=== PATIENT | female | born 1965 | race Caucasian/White ===

== ENCOUNTER → 2016-11-25 | Outpatient (CLI) | payer OTHER ==
[~2016-11-25] MED LIST: ALL180 PO; CALC500C70 PO; CYM60 PO; DYZ PO; LO OVRAL BCP PO; OMEG10007 PO; VITA400C15 PO; ZNTT/150 PO
--- NOTE | 2016-11-25 16:45 | MAMMOGRAPHY REPORT ---
BILATERAL DIGITAL SCREENING MAMMOGRAM TOMOSYNTHESIS WITH CAD: 11/25/2016 TECHNIQUE: Breast tomosynthesis in addition to standard 2D mammography was performed. Current study was also evaluated with a Computer Aided Detection (CAD) system. COMPARISON: Comparison is made to exams dated: 11/22/2015 mammogram, 10/30/2014 mammogram, 10/24/2013 mammogram, 10/20/2012 mammogram, 10/17/2011 mammogram, and 10/23/2010 mammogram - [facility] enter. BREAST COMPOSITION: There are scattered areas of fibroglandular density in both breasts. FINDINGS: There is a new small 2 mm cluster of calcifications in the right upper inner quadrant, fo r which spot magnification views are recommended for further evaluation. The remainder of both breasts are stable compared to prior exams, without suspicious masses, calcifi cations, or areas of architectural distortion noted. IMPRESSION: ACR BI-RADS CATEGORY 0: INCOMPLETE EVALUATION: NEED ADDITIONAL IMAGING EVALUATION Right upper inner quadrant calcifications, for which additional imaging evaluation is recommended. The patient will be called to schedule an appointment. Approximately 10% of breast cancers are not detected with mammography. A negative mammographic repor t should not delay biopsy if a clinically suggestive mass is present. Ivette Mcneill M.D. ah/:11/25/2016 16:00:01 Marketing Executive: Cary ROSARIO(Shaun)(M), [facility] letter sent: Addl Imaging 0 BI-RADS Code: ACR BI-RADS Category 0: Incomplete Evaluation: Need Additional Imaging Evaluation
== END | disposition home or self-care (01) ==
LOC: C.MAMM 15:12
PROVIDERS: ATTEND Internal Medicine
DX: Z12.31 Encounter for screening mammogram for malignant neoplasm of breast (principal); R92.1 Mammographic calcification found on diagnostic imaging of breast

== ENCOUNTER → 2016-12-12 | Outpatient (CLI) | payer OTHER ==
--- NOTE | 2016-12-15 13:48 | MAMMOGRAPHY REPORT ---
UNILATERAL RIGHT DIGITAL DIAGNOSTIC MAMMOGRAM: 12/12/2016 CLINICAL HISTORY: Callback from screening mammogram for right breast calcifications. The patient fabian s a family history of breast cancer in her mother. TECHNIQUE: Spot magnification right cc and ML views were obtained. COMPARISON: Comparison is made to exams dated: 11/25/2016 mammogram, 10/30/2014 mammogram, 11/22/2015 mammogram, 10/24/2013 mammogram, 10/20/2012 mammogram, and 10/17/2011 mammogram - [facility] enter. BREAST COMPOSITION: There are scattered areas of fibroglandular density in the right breast. FINDINGS: Spot magnification views of the right breast demonstrate a small 2 mm cluster of coarse h eterogeneous calcifications within the right 12:00 breast. The calcifications are probably benign a nd likely represent a degenerating fibroadenoma or potentially dystrophic calcifications. Recommend follow-up diagnostic mammograms of the right breast in 6 months to confirm stability. IMPRESSION: ACR-BI-RADS CATEGORY 3: PROBABLY BENIGN Small 2 mm cluster of coarse calcifications in the right 12:00 breast is probably benign and may rep resent a degenerating fibroadenoma or dystrophic calcifications. Recommend follow-up diagnostic arnie mograms of the right breast in 6 months to confirm stability on spot magnification views. The patient has been verbally notified of the results. Approximately 10% of breast cancers are not detected with mammography. A negative mammographic repor t should not delay biopsy if a clinically suggestive mass is present. Ivette Mcneill M.D. ah/:12/12/2016 14:30:54 Fur Matcher: New ROSARIO(R)(M), [facility] letter sent: Follow Up Recommended 3 BI-RADS Code: ACR-BI-RADS Category 3: Probably Benign
== END | disposition home or self-care (01) ==
LOC: C.MAMM 14:04
PROVIDERS: ATTEND Internal Medicine
DX: R92.1 Mammographic calcification found on diagnostic imaging of breast (principal)

== ENCOUNTER → 2017-02-21 | Outpatient (CLI) | payer OTHER ==
[2017-02-21 09:30] LABS: BASO % 0.6 %; BASO ABS # 0.05 K/uL (0-0.2); COMPLETE YES; EOS % 2.8 %; HEMATOCRIT 43.1 % (37-47); IG% 0.1 %; LYMPH % 41.1 %; LYMPH ABS # 3.24 K/uL (1.2-3.4); MEAN CELL VOLUME 89.4 fL (80-100); MEAN CORPUSCULAR HEMOGLOBIN 30.3 pg (25-34); MEAN CORPUSCULAR HGB CONC 33.9 g/dl (32-36); MEAN PLATELET VOLUME 12.2 fL (7.4-10.4); MONO % 6.6 %; NEUT % 48.8 %; PLATELET COUNT 248 K/uL (130-400); RED BLOOD COUNT 4.82 M/uL (4.2-5.4); WHITE BLOOD COUNT 7.89 K/uL (4.8-10.8)
[2017-02-21 10:18] LABS: ALT/SGPT 30 U/L (12-78); BLOOD UREA NITROGEN 19 mg/dl (7-18); BUN/CREATININE RATIO 18.8 (10-20); CARBON DIOXIDE 25 mmol/L (21-32); CHLORIDE 107 mmol/L (98-107); GLUCOSE 84 mg/dl (70-99); POTASSIUM 3.8 mmol/L (3.5-5.1); SODIUM 141 mmol/L (136-145)
[2017-02-21 10:24] LABS: CALCIUM 10.1 mg/dl (8.5-10.1)
[2017-02-21 10:28] LABS: AST/SGOT 18 U/L (15-37); CHOLESTEROL 176 mg/dl (0-200); HDL CHOLESTEROL 35 mg/dl; LDL CHOLESTEROL CALCULATED 103 mg/dl; TRIGLYCERIDES 190 mg/dl (0-150); VERY LOW DENSITY LIPOPROT CALC 38 mg/dl
== END | disposition home or self-care (01) ==
LOC: C.LAB 08:30
PROVIDERS: ATTEND Internal Medicine
DX: E03.9 Hypothyroidism, unspecified (principal); I10 Essential (primary) hypertension; E78.2 Mixed hyperlipidemia; R60.9 Edema, unspecified

== ENCOUNTER → 2017-02-26 | Outpatient (CLI) | payer OTHER | END | disposition home or self-care (01) | LOC: C.PAPS 10:08 | PROVIDERS: ATTEND Obstetrics & Gynecology | DX: Z12.4 Encounter for screening for malignant neoplasm of cervix (principal) ==

== ENCOUNTER → 2017-03-02 | Outpatient (CLI) | payer OTHER | END | disposition home or self-care (01) | LOC: C.LAB 16:37 | PROVIDERS: ATTEND Physician Assistant | DX: Z30.09 Encounter for other general counseling and advice on contraception (principal) ==

== ENCOUNTER → 2017-06-16 | Outpatient (CLI) | payer OTHER ==
--- NOTE | 2017-06-16 12:39 | MAMMOGRAPHY REPORT ---
UNILATERAL RIGHT DIGITAL DIAGNOSTIC MAMMOGRAM TOMOSYNTHESIS WITH CAD: 06/16/2017 CLINICAL HISTORY: 52-year-old woman presents for follow-up of a probably benign grouping of coarse ca lcifications in the upper inner quadrant of the right breast. TECHNIQUE: Right breast tomosynthesis in addition to standard 2D mammography was performed. Spot mag nification right CC and ML views were also obtained. Current study was also evaluated with a Compute r Aided Detection (CAD) system. COMPARISON: Comparison is made to exams dated: 12/12/2016 mammogram, 11/25/2016 mammogram, 11/22/2015 ma mmogram, 10/30/2014 mammogram, 10/24/2013 mammogram, and 10/20/2012 mammogram - [facility]. BREAST COMPOSITION: There are scattered areas of fibroglandular density in the right breast. FINDINGS: There is a stable 2 mm cluster of coarse heterogeneous microcalcifications in the upper inn er middle to posterior right breast. These have not changed comparing to the spot magnification view s obtained in December 2016, and probably represent a benign degenerating fibroadenoma. However, given that they were not seen on the 2016 or prior mammograms, longer stability is needed. Repeat right sp ot magnification views are recommended in 6 months. Annual left mammography will also be due at that time. No other suspicious mass, architectural distortion or cluster of microcalcifications is seen in the right breast. IMPRESSION: ACR-BI-RADS CATEGORY 3: PROBABLY BENIGN Stable mammographic appearance of the right breast including a probably benign grouping of coarse manju cifications in the upper inner quadrant. Another six-month follow-up right diagnostic mammogram incl uding spot magnification views is recommended to ensure longer stability. Annual left mammography wi ll be due at that time. Approximately 10% of breast cancers are not detected with mammography. A negative mammographic report should not delay biopsy if a clinically suggestive mass is present. Jaye Hair M.D. ay/:06/16/2017 08:47:11 Unemployment Examiner: Dorothy ROSARIO(R)(M), [facility] letter sent: Follow Up Recommended 3 BI-RADS Code: ACR-BI-RADS Category 3: Probably Benign
== END | disposition home or self-care (01) ==
LOC: C.MAMM 08:16
PROVIDERS: ATTEND Internal Medicine
DX: R92.1 Mammographic calcification found on diagnostic imaging of breast (principal)

== ENCOUNTER → 2017-09-17 | Outpatient (CLI) | payer OTHER ==
--- NOTE | 2017-09-17 17:03 | DIAGNOSTIC IMAGING REPORT ---
R HIP UNILATERAL 2 VIEWS CLINICAL HISTORY: Right hip pain. COMPARISON: None FINDINGS: Alignment of the right hip is anatomic. There is no fracture or osseous lesion. Joint space is preserved. There is slight osteophytosis along the superior acetabulum. There is no evidence for avascular necrosis. IMPRESSION: Unremarkable right hip radiographs. Electronically signed by: Rafi Nichole M.D. 09/17/2017 5:02 PM Dictated Date/Time: 09/17/2017 5:01 PM
--- NOTE | 2017-09-17 17:03 | DIAGNOSTIC IMAGING REPORT ---
L-SPINE MIN 4 VIEWS ROUTINE CLINICAL HISTORY: Back pain. COMPARISON: None. FINDINGS: Incidental note is made of an intrauterine device. Alignment of the lumbar spine is anatomic. Vertebral body heights are maintained. No fracture or suspicious lesion is noted. Note is made of a transitional vertebra at the lumbosacral junction which is designated as L5 for purposes of numbering on this exam. This vertebral body is partially sacralized. When utilizing this numbering scheme, there is marked disc space narrowing at L4-L5 and moderate disc space narrowing at L5-S1. There is moderate to severe multilevel facet arthrosis. IMPRESSION: 1. No acute lumbar spine fracture or subluxation. 2. Transitional vertebra at the lumbosacral junction which is designated as L5 for purposes of numbering on this exam. 3. Marked disc space narrowing at L4-L5 and moderate disc space narrowing at L5-S1. 4. Moderate to severe multilevel facet arthrosis. Electronically signed by: Rafi Nichole M.D. 09/17/2017 5:02 PM Dictated Date/Time: 09/17/2017 4:41 PM
== END | disposition home or self-care (01) ==
LOC: C.RAD1850 16:14
PROVIDERS: ATTEND Internal Medicine
DX: M25.551 Pain in right hip (principal); M99.73 Connective tissue and disc stenosis of intervertebral foramina of lumbar region

== ENCOUNTER → 2017-10-28 | Outpatient (CLI) | payer OTHER ==
--- NOTE | 2017-10-28 14:30 | Discharge Instructions ---
Discharge Instructions Procedure Procedure Date: Oct 28, 2017. Reason for visit: Left Asymmetry. Discharge Discharge Date: Oct 28, 2017. Discharge Diagnosis: post left breast stereotactic guided biopsy Instructions Activity Recommendations: Additional Limitations (see below) Return to School/Work: no limitations Recommended Home Diet: No Limitations Provider Instructions: ACTIVITY RECOMMENDATIONS: * No lifting, pushing, pulling or exercising the affected side for three days. RETURN TO SCHOOL/WORK: * You may return to work/school after the procedure, but do not perform any strenuous activities for 24 to 48 hours. MEDICATIONS: * Tylenol (two 325 mg) every four to six hours if needed for mild pain (if not allergic to Tylenol). DIET: * Resume previous diet. SPECIAL CARE INSTRUCTIONS: * Keep biopsy site dry for 24 hours. May shower after 24 hours, but do not soak (bathe) incision. * May remove Tegaderm (plastic patch) tomorrow AFTER showering. * Leave the steri-strips on for one week. Allow the steri-strips to fall off by themselves. If not off after one week, you may remove them. You may place a Bandaid crosswise over the strips, if desired. * Apply ice 10 minutes on and 10 minutes off as needed. * Wear a bra at bedtime to sleep more comfortably for 2-3 days. * Your referring physician should have the results after approximately 5 to 7 business days. * Call for unusual bleeding, fever, drainage, etc or if you have any questions call [phone] during normal business hours or after hours call Dr Hair, . FOLLOW UP VISIT: Follow-up with Referring Physician as scheduled. Allergies Coded Allergies: Sulfa Drugs (Verified Allergy, Unknown, RASH, 05/21/14) Sanaz Lou Recommendations: Call your doctor if: * Temperature above 101 degrees * Pain not relieved by pain medicine ordered * There is increased drainage or redness from any incision * You have any unanswered questions or concerns. Your Doctors Instructions noted above were prepared by provider Jaye Hair. Patient Signature Section: Patient Instructions Signature Page Chery Clarke Patient (or Guardian) Signature/Date: I have read and understand the instructions given to me by my caregivers. Caregiver/RN/Doctor Signature/Date: The above-named patient and/or guardian has received patient instructions on this date. + Original Patient Signature Page (only) stays with chart. Please make copy for patient.
--- NOTE | 2017-10-28 15:08 | MAMMOGRAPHY REPORT ---
STEREOTACTIC GUIDED BIOPSY LEFT BREAST: 10/28/2017 CLINICAL HISTORY: 52-year-old woman presents for stereotactic tomosynthesis guided biopsy of a focal asymmetry in the approximate 3:00/lower outer posterior left breast. COMPARISON: Comparison is made to exams dated: 10/22/2017 mammogram, 11/25/2016 mammogram, 11/22/2015 m ammogram, 10/30/2014 mammogram, 10/24/2013 mammogram, and 10/20/2012 mammogram - [facility] nter. PATIENT CONSENT: After explaining the risks, benefits and alternatives of the procedure to the patien t, informed consent was obtained both verbally and in writing. Specific risks include: Bleeding, inf ection, puncture of adjacent structure, pain, nontarget biopsy, sampling error, metal allergy and med ication reaction. PROCEDURE DESCRIPTION: A time-out was performed and the left breast was confirmed as the site of biop sy. The patient was placed prone on the stereotactic biopsy table and the breast was placed in CC fro m below compression. A tomosynthesis hairmasters manager view was obtained that redemonstrates the focal asymmetry in question, which is amenable to stereotactic biopsy. The asymmetry with targeted utilizing the senior marketing coordinator rdinates obtained by the computer. The skin was prepped with Betadine. 1% Lidocaine with and without epinipherine was administered as local anesthesia. A small skin incision was made. Through the inci sophia, the needle was inserted to the depth determined by the computer. 10 samples were obtained using a VBOX Eviva 9-gauge vacuum-assisted biopsy device. A post-clip tomosynthesis view was obtained wh ich demonstrates an air pocket within the asymmetry in question, compatible with adequate sampling. There was no immediate complication. Hemostasis was achieved after several minutes of manual compress ion. The samples were sent to pathology in an appropriately labeled container. Postprocedure CC and MLO tomosynthesis images of the left breast were obtained. There is a biopsy ma rker clip and air pocket in the 3:00 posterior left breast, at the site of the biopsied focal asymmet ry in question. No significant postbiopsy hematoma identified. There is good alignment of the marke r clip with the previously observed focal asymmetry. IMPRESSION: STEREOTACTIC GUIDED BIOPSY Status post stereotactic tomosynthesis guided biopsy of a focal asymmetry in the 3:00 posterior left breast, with biopsy marker clip placed at the site. Pending benign pathology results, follow-up diagnostic mammograms including right breast magnificatio n views are recommended in 12 months. The patient will receive notification of the biopsy results from her referring physician. Jaye Hair M.D. ay/:10/28/2017 14:49:41 Supervisor Spinning: New ROSARIO(Shaun)(M), [facility]
--- NOTE | 2017-10-28 15:11 | MAMMOGRAPHY REPORT ---
UNILATERAL LEFT DIGITAL DIAGNOSTIC MAMMOGRAM TOMOSYNTHESIS: 10/28/2017 CLINICAL HISTORY: Status post stereotactic tomosynthesis guided biopsy of a focal asymmetry in the lo wer outer posterior left breast. Please refer to the report from left breast stereotactic tomosynthesis guided biopsy performed at the same time for full detail. IMPRESSION: POST PROCEDURE IMAGING FOR MARKER PLACEMENT Please refer to the report from left breast stereotactic tomosynthesis guided biopsy performed at the same time for full detail. Approximately 10% of breast cancers are not detected with mammography. A negative mammographic report should not delay biopsy if a clinically suggestive mass is present. Jaye Hair M.D. ay/:10/28/2017 14:29:16 Adjunct Physics Instructor: New ROSARIO(Shaun)(M), [facility] BI-RADS Code: Post Procedure Imaging For Marker Placement
== END | disposition home or self-care (01) ==
LOC: C.MAMM 13:33
PROVIDERS: ATTEND Internal Medicine
DX: R92.8 Other abnormal and inconclusive findings on diagnostic imaging of breast (principal)

== ENCOUNTER → 2017-11-25 | Day surgery (SDC) | payer OTHER ==
[2017-11-12 15:36] VITALS: Ht 162.6 cm; Wt 94.1 kg
[~2017-11-25] VITALS: Ht 162.6 cm; Wt 94.1 kg
[~2017-11-25] MED LIST changes: -ALL180 PO; -CYM60 PO; +DULO60CA44 PO; -DYZ PO; +LEVO19.5 PV; +LEVO75TA5 PO; +LIDOCAINE HCL 2% 2 ML VIAL (20MG/ML) ONE; -LO OVRAL BCP PO; +POTA20TA16 PO; +PROPOFOL IV EMULSION 10 MG/ML 20 ML VIAL IV ONE; +RANI150T85 PO; +SODIUM CHLORIDE 0.9% 500ML 500 ML IV ONE; +TRIA37.5 PO; -VITA400C15 PO; -ZNTT/150 PO
[2017-11-25 10:09] VITALS: TEMP 36.9
--- NOTE | 2017-11-25 10:12 | Endo History and Physical ---
History & Physical Date of Service: Nov 25, 2017. Chief Complaint: screening Referring Physician: Dr. Herminio Barbour History of Present Illness 52 yo CF who presents for screening colonoscopy. Past Surgical History Hx Cardiac Surgery: No Hx Internal Defibrillator: No Hx Pacemaker: No Hx Abdominal Surgery: No Hx of Implantable Prosthesis: No Hx Post-Op Nausea and Vomiting: No Hx Cancer Surgery: No Hx Thoracic Surgery: No Hx Orthopedic: No Hx Urinary Tract Surgery: No Social History Smoking Status: Never Smoker Hx Substance Use: No Hx Alcohol Use: No Allergies Coded Allergies: Sulfa Drugs (Verified Allergy, Unknown, RASH, 11/12/17) Current Medications Reported Home Medications Medications Dose Route/Sig Max Daily Dose Days Date Category Dyazide 37.5MG/25MG (Triamterene/HCTZ) Cap 1 Tab PO QAM 11/12/17 Reported Levothyroxine Sodium 75 Mcg Tab 75 Mcg PO QAM 11/12/17 Reported Kyleena (Levonorgestrel (Iud)) 19.5 Mg Iud 1 Dose PV UD 11/12/17 Reported Cymbalta (Duloxetine Hcl) 60 Mg Cap 60 Mg PO QAM 11/12/17 Reported Klor-Con (Potassium Chloride) 20 Meq Tabcr 20 Meq PO QAM 11/12/17 Reported Os-Omari 500 Plus D (Calcium/Vitamin D) Tab 1 Tab PO QPM 06/20/11 Reported [place]-3 (Fish Oil) 1 Ea Cap 4 Cap PO QAM 06/20/11 Reported Zantac (Ranitidine HCl) 150 Mg Tab 150 Mg PO QAM 06/20/11 Reported Vital Signs Weight (Kilograms): 94.09 Height (Feet): 5 Height (Inches): 4 Date Time Temp Pulse Resp B/P (MAP) Pulse Ox O2 Delivery O2 Flow Rate FiO2 11/25/17 10:09 36.9 79 20 142/86 (104) 97 Room Air Physical Exam General Appearance: WD/WN, no apparent distress Respiratory/Chest: Auscultation: breath sounds normal Cardiovascular: Heart Auscultation: RRR Abdomen: Bowel Sounds: normal Inspection & Palpation: soft, non-distended, no tenderness, guarding & rebound Assessment and Plan Assessment: 52 yo CF who presents for screening colonoscopy. Plan: Proceed with colonoscopy.
--- NOTE | 2017-11-25 10:53 | Discharge Instructions ---
Endoscopy Patient Instructions Date / Procedure(s) Performed Nov 25, 2017. Colonoscopy Allergy Information Coded Allergies: Sulfa Drugs (Verified Allergy, Unknown, RASH, 11/12/17) Discharge Date / Findings Nov 25, 2017. Internal hemorrhoids Medication Instructions OK to resume all medications today as prescribed Reported Home Medications Medications Dose Route/Sig Max Daily Dose Days Date Category Dyazide 37.5MG/25MG (Triamterene/HCTZ) Cap 1 Tab PO QAM 11/12/17 Reported Levothyroxine Sodium 75 Mcg Tab 75 Mcg PO QAM 11/12/17 Reported Kyleena (Levonorgestrel (Iud)) 19.5 Mg Iud 1 Dose PV UD 11/12/17 Reported Cymbalta (Duloxetine Hcl) 60 Mg Cap 60 Mg PO QAM 11/12/17 Reported Klor-Con (Potassium Chloride) 20 Meq Tabcr 20 Meq PO QAM 11/12/17 Reported Os-Omari 500 Plus D (Calcium/Vitamin D) Tab 1 Tab PO QPM 06/20/11 Reported [place]-3 (Fish Oil) 1 Ea Cap 4 Cap PO QAM 06/20/11 Reported Zantac (Ranitidine HCl) 150 Mg Tab 150 Mg PO QAM 06/20/11 Reported Provider Instructions Activity Restrictions - No exercising or heavy lifting for 24 hours. - Do not drink alcohol the day of the procedure. - Do not drive a car or operate machinery until the day after the procedure. - Do not make any important decisions or sign important papers in 24 hours after the procedure. Following Day: - Return to full activity which may include returning to work/school. Diet Start your diet with liquids and light foods (jello, soup, juice, toast). Then eat your usual diet if not nauseated. Treatment For Common After Affects For mild abdominal pain, bloating, or excessive gas: - Rest - Eat lightly - Lie on right side Follow-Up Information Follow-up with Dr. Herminio Barbour as scheduled Anesthesia Information What You Should Know You have had a procedure that required some medicine to reduce anxiety and discomfort. This treatment is called moderate sedation. After receiving the treatment, you may be sleepy, but you will be able to breathe on your own. The effects of the treatment may last for several hours. Follow these instructions along with Activity/Diet recommendations noted above: * Do NOT do anything where dizziness or clumsiness would be dangerous. * Rest quietly at home today, then you can be up and about tomorrow. * Have a responsible person stay with you the rest of today. * You may have had an I.V. today. If so, you may take the dressing off later today. Recommendations Call your doctor if: * Trouble breathing * Continuous vomiting for more than 24 hours * Temperature above 101 degrees * Severe abdominal pain or bloating * Pain not relieved by pain medicine ordered * There is increased drainage or redness from any incision * A large amount of rectal bleeding greater than 2-3 tablespoons. (If you had a polyp/s removed or have hemorrhoids, a small amount of blood - from the rectum is to be expected.) * You have any unanswered questions or concerns. IN THE EVENT OF A SERIOUS EMERGENCY, GO TO THE NEAREST EMERGENCY ROOM Your discharge instructions were prepared by provider Navneet Bragg. Patient Instructions Signature Page Chery Clarke Patient (or Guardian) Signature/Date: I have read and understand the instructions given to me by my caregivers. Caregiver/RN/Doctor Signature/Date: The above-named patient and/or guardian has received patient instructions on this date. + Original Patient Signature Page (only) stays with chart. Please make copy for patient.
--- NOTE | 2017-11-25 11:02 | GI REPORT ---
Procedure Date: 11/25/2017 9:56 AM Procedure: Colonoscopy Indications: Screening for colorectal malignant neoplasm Medicines: Monitored Anesthesia Care Complications: No immediate complications. Estimated Blood Loss: Estimated blood loss: none. Procedure: Pre-Anesthesia Assessment: - Prior to the procedure, a History and Physical was performed, and patient medications and allergies were reviewed. The patient's tolerance of previous anesthesia was also reviewed. The risks and benefits of the procedure and the sedation options and risks were discussed with the patient. All questions were answered, and informed consent was obtained. Prior Anticoagulants: The patient has taken no previous anticoagulant or antiplatelet agents. ASA Grade Assessment: II - A patient with mild systemic disease. After reviewing the risks and benefits, the patient was deemed in satisfactory condition to undergo the procedure. After I obtained informed consent, the scope was passed under direct vision. Throughout the procedure, the patient's blood pressure, pulse, and oxygen saturations were monitored continuously. The scope was introduced through the anus and advanced to the terminal ileum. The colonoscopy was performed without difficulty. The patient tolerated the procedure well. The quality of the bowel preparation was good. The terminal ileum, ileocecal valve, appendiceal orifice, and rectum were photographed. Findings: The perianal and digital rectal examinations were normal. Non-bleeding internal hemorrhoids were found during retroflexion. The hemorrhoids were small. Impression: - Non-bleeding internal hemorrhoids. - No specimens collected. Recommendation: - Resume previous diet. - Continue present medications. - Repeat colonoscopy in 10 years for surveillance. - Return to primary care physician as previously scheduled. Navneet Bragg DO 11/25/2017 11:02:33 AM This report has been signed electronically. Note Initiated On: 11/25/2017 9:56 AM I attest to the content of the Intraoperative Record and orders documented therein, exceptions below
[2017-11-25 11:09] VITALS: BP 123/71; PULSE 78; O2SAT 99
--- NOTE | 2017-11-25 11:40 | Anesthesiology Progress Note ---
Anesthesia Post Op Note Date & Time Nov 25, 2017 at 11:40 Vital Signs Pain Intensity: 0 Vital Signs Past 12 Hours Date Time Temp Pulse Resp B/P (MAP) Pulse Ox O2 Delivery O2 Flow Rate FiO2 11/25/17 11:09 78 20 123/71 (88) 99 Room Air 11/25/17 11:02 73 20 116/71 (86) 97 Room Air 11/25/17 10:57 67 20 125/77 (93) 94 Room Air 11/25/17 10:48 75 20 112/76 (88) 98 11/25/17 10:09 36.9 79 20 142/86 (104) 97 Room Air Notes Mental Status: alert / awake / arousable, participated in evaluation Pt Amnestic to Procedure: Yes Nausea / Vomiting: adequately controlled Pain: adequately controlled Airway Patency, RR, SpO2: stable & adequate BP & HR: stable & adequate Hydration State: stable & adequate Anesthetic Complications: no major complications apparent
== END | disposition home or self-care (01) ==
LOC: C.GI 09:45
PROVIDERS: ATTEND Internal Medicine
DX: Z12.11 Encounter for screening for malignant neoplasm of colon (principal); K64.8 Other hemorrhoids; G47.33 Obstructive sleep apnea (adult) (pediatric); K21.9 Gastro-esophageal reflux disease without esophagitis; M19.90 Unspecified osteoarthritis, unspecified site; F32.9 Major depressive disorder, single episode, unspecified; Z90.89 Acquired absence of other organs; Z88.2 Allergy status to sulfonamides; Z99.89 Dependence on other enabling machines and devices

== ENCOUNTER → 2017-12-15 | Outpatient (CLI) | payer OTHER ==
[~2017-12-15] MED LIST changes: -LIDOCAINE HCL 2% 2 ML VIAL (20MG/ML) ONE; -PROPOFOL IV EMULSION 10 MG/ML 20 ML VIAL IV ONE; -SODIUM CHLORIDE 0.9% 500ML 500 ML IV ONE
== END | disposition home or self-care (01) ==
LOC: C.PAPS 18:16
PROVIDERS: ATTEND Obstetrics & Gynecology
DX: Z12.4 Encounter for screening for malignant neoplasm of cervix (principal)

== ENCOUNTER → 2018-02-06 | Outpatient (CLI) | payer OTHER ==
[~2018-02-06] MED LIST changes: +POTA-639 PO; -POTA20TA16 PO
[2018-02-06 10:09] LABS: ALT/SGPT 29 U/L (12-78); AST/SGOT 21 U/L (15-37); BLOOD UREA NITROGEN 14 mg/dl (7-18); CALCIUM 8.6 mg/dl (8.5-10.1); CARBON DIOXIDE 29 mmol/L (21-32); CHOLESTEROL 154 mg/dl (0-200); CREATININE 1.09 mg/dl (0.60-1.20); GLUCOSE 108 mg/dl (70-99); POTASSIUM 3.2 mmol/L (3.5-5.1); SODIUM 137 mmol/L (136-145)
[2018-02-06 10:20] LABS: LDL CHOLESTEROL CALCULATED 90 mg/dl
== END | disposition home or self-care (01) ==
LOC: C.LAB 09:10
PROVIDERS: ATTEND Internal Medicine
DX: E78.2 Mixed hyperlipidemia (principal); I10 Essential (primary) hypertension; E03.9 Hypothyroidism, unspecified

== ENCOUNTER → 2018-04-28 | Outpatient (CLI) | payer OTHER ==
[2018-04-28 12:24] LABS: BLOOD UREA NITROGEN 16 mg/dl (7-18); CALCIUM 9.3 mg/dl (8.5-10.1); CARBON DIOXIDE 29 mmol/L (21-32); CREATININE 1.05 mg/dl (0.60-1.20); GLUCOSE 102 mg/dl (70-99); POTASSIUM 3.6 mmol/L (3.5-5.1); SODIUM 137 mmol/L (136-145)
== END | disposition home or self-care (01) ==
LOC: C.LAB 09:45
PROVIDERS: ATTEND Internal Medicine
DX: E03.9 Hypothyroidism, unspecified (principal); I10 Essential (primary) hypertension

== ENCOUNTER 2021-09-23 04:46 | Observation (INO) ==
[2021-09-23] MEDS ORDERED: SODIUM CHLORIDE 0.9% 1000ML 1,000 ML IV ONE (06:48)
[2021-09-23] MEDS ORDERED: MoRPHine SULFATE 10 MG/ML CARP/VIAL IV STA ×2 (06:48→09:00)
[2021-09-23] MEDS ORDERED: ONDANSETRON INJ 2 MG/ML 2 ML VIAL IV STA (06:48)
--- NOTE | 2021-09-23 06:51 | Emergency Department Note ---
Impression & Plan Intractable epigastric abdominal pain, Dysfunctional gallbladder ED Provider Note Name: TALON ALCALA Age: 56 Sex: F Arrives Via: Walk-In Informant: Patient ED Provider: Luiz Cabezas MD Chief Complaint: epigastric pain Impression: As per impressions above Medical Decision Making: This is a 56-year-old female with a history of GERD, depression, hypertension, FLAVIA, PCOS, hypertriglyceridemia, and COVID-19 last year. Patient arrives with acute onset epigastric pain with nausea starting overnight. Abdominal exam has epigastric right upper quadrant tenderness to palpation. Work-up including EKG and labs are unremarkable. Ultrasound of the right upper quadrant reveals stone in the gallbladder with a positive Wade's exam however no clear evidence of cholecystitis. Patient required multiple rounds of IV narcotics for pain control. After discussion with general surgery the plan is to hospitalize for further monitoring and possible cholecystectomy depending on repeat exams and possible hepatobiliary scan. Given location of the patient's pain and other laboratory findings I do not feel emergent CT is at this time indicated. Her exam is not consistent with aortic aneurysm dissection or rupture. Her EKG has nonspecific T wave inversion inferiorly which does appear new however in the setting of a normal troponin and symptoms ongoing the entire night I feel that ACS is much less likely. Prior Medical Record and Triage/Nursing Notes reviewed by Me Additional history obtained from chart Differentials:Cholecystitis, gallbladder dysfunction, PUD, GERD, ACS, dissection, pancreatitis, AAA/rupture, amongst other pathologies. Vital Signs: reviewed and remarkable for no significant abnormalities Interventions: Morphine 6 mg IV x2, normal saline bolus, Zofran 4 mg IV Labs:Reviewed and remarkable for no significant abnormalities Imaging:As per radiology ultrasound reveals stone in gallbladder with positive Wade's sign no clear evidence of cholecystitis EKG:Per My Interpretation: Indication Epigastric pain: NSR 65 bpm, qtc 438. No Ectopy. No Ischemia. Compared to EKG 09/08/20 P wave flipped inferiorly of uncertain significance Cardiac/Tele Monitoring: Cardiac Monitoring: An Order was placed for continuous cardiac monitoring. The monitor shows a rate of 65 with a normal sinus rhythm. Consults:[facility] General surgery evaluated the patient and will manage further Plan: Disposition:Hospitalization. Condition: Good History of Present Illness:This is a 56-year-old female who arrives for evaluation of epigastric pain. Patient notes that overnight rapidly developing epigastric pain with radiation to right flank. Associated nausea vomiting. No diarrhea. Patient took an extra omeprazole without improvement. Nothing seems to make better nor worse. Denies similar symptoms in the past. No trauma, injuries, falls. Patient denies fevers, chills, headache, shortness of breath, chest pain, back pain, lower abdominal pain, rashes, leg swelling, urinary symptoms, bowel changes, nor other symptoms. Patient has not had any previous abdominal surgeries. She has never had work-up for this evaluation. ROS: See above HPI for pertinent positives & negatives. A total of 10 systems reviewed and were otherwise negative. Past Medical History:Hypertension, depression/anxiety, hypothyroidism Past Surgical History:None Family History:Mother and niece with cholecystitis Social History:Patient works at [employer], denies smoking, Home Medications:See below Allergies:Sulfa Vitals:Blood Pressure: 145/82, Pulse 68, RR 18, T 36.3C, O2 94% on RA Physical Exam: GENERAL: Patient is uncomfortable appearing and in mild distress. EYES: No scleral icterus, unremarkable pupils. ENT: Mucous membranes moist, no nasal congestion. NECK: No masses appreciated, nomeningismus, trachea is midline. RESPIRATORY: No dyspnea. Clear to auscultation and equal bilaterally. No wheeze, no rhonchi. CARDIOVASCULAR: Regular rate and rhythm.No murmurs, rubs, gallops appreciated. GASTROINTESTINAL: Epigastric & RUQ TTP, abdomen soft, non-tender, no peritonitis.Bowel sounds positive.No masses appreciated. BACK: No midline tenderness, no CVA tenderness EXTREMITIES: Normal motion all extremities, no cyanosis, no edema. NEUROLOGIC: Alert and oriented, no acute motor or sensory deficits, no focal weakness, cranial nerves grossly intact. SKIN: No rash, no jaundice, no diaphoresis. PSYCH: Appropriate GCS: 15 ED Course: Times/Reassessments: stable, requiring repeat dosing of morphine periodically Luiz Cabezas MD Past Med/Surg History Medical History Carpal tunnel syndrome Costochondritis Hypokalemia Inflamed seborrheic keratosis LGSIL on Pap smear of cervix Lump of skin Psoriasis, guttate Surgical History History of esophagogastroduodenoscopy (EGD) S/P sinus surgery S/P tonsillectomy Family History Mother Congestive heart failure Breast cancer Myocardial infarction Father Diabetes Hypertension Hyperlipidemia Prostate cancer Denies family history of Ovarian cancer Colorectal cancer Social History Smoking Status: Never smoker Second Hand Exposure: No; Hx Alcohol Use: No Hx Substance Use: No Preferred Language: Slovenian Communication Ability: Effective Visual Impairment: No Limitations Hearing Ability: Normal Beliefs That Will Affect Care: None marital status: Current Living Situation: Spouse current occupational status: employed current occupation: Way master Feels Safe at Home: Yes Childhood Exposure to Second-Hand Smoke: No Dental Care, Regularly: Yes Physical Activity Frequency: Does not Exercise Seatbelt Use: always Sunscreen Use: Yes Allergies Allergies Allergy/AdvReac Type Severity Reaction Status Date / Time Sulfa (Sulfonamide Allergy Unknown RASH Verified 03/13/21 15:55 Antibiotics) Home Meds Home Medications Medication Instructions Recorded Confirmed calcium carbonate 500 mg calcium 500 mg PO QPM tab 04/25/19 09/23/21 (1,250 mg) chewable tablet (Calcium 500) Previous Rx's Medication Instructions Recorded omeprazole 20 mg capsule,delayed 20 mg PO QAM #90 cap 01/07/21 release levothyroxine 88 mcg capsule 88 mcg PO QAM #90 cap 02/04/21 sertraline 100 mg tablet 100 mg PO QAM #90 tab 02/22/21 triamterene 37.5 1 cap PO QAM #90 cap 04/05/21 mg-hydrochlorothiazide 25 mg capsule potassium chloride 20 mEq 20 meq PO QAM #90 tab 08/09/21 tablet,extended release(part/cryst) (Klor-Con M) Results & Data (ED) Vital Signs Vital Signs - 24 hr 09/23/21 04:59 09/23/21 06:38 09/23/21 07:30 Temperature 36.3 C L Temperature Source Temporal Artery Scan Pulse Rate 67 Pulse Rate [Finger] 68 69 Respiratory Rate 18 16 Respiratory Depth Normal Blood Pressure 154/75 H Blood Pressure [Left Arm] 145/82 H 138/79 Blood Pressure Mean 101 Blood Pressure Mean [Left Arm] 103 98 Blood Pressure Position [Left Arm] Sitting Sitting Pulse Oximetry 99 94 95 Oxygen Delivery Method Room Air Room Air Room Air Sepsis Recent Fever Within 48 Hours No Sepsis New/Unexplained Change in Mental Status N/A Sepsis Action Taken by Nursing No Action Required 09/23/21 10:00 Temperature Temperature Source Pulse Rate Pulse Rate [Finger] 68 Respiratory Rate 16 Respiratory Depth Blood Pressure Blood Pressure [Left Arm] 127/87 Blood Pressure Mean Blood Pressure Mean [Left Arm] 100 Blood Pressure Position [Left Arm] Pulse Oximetry 94 Oxygen Delivery Method Room Air Sepsis Recent Fever Within 48 Hours Sepsis New/Unexplained Change in Mental Status Sepsis Action Taken by Nursing Laboratory Data Result diagrams: 09/23/21 06:57 09/23/21 06:57 Lab Results 09/23/21 09/23/21 09/23/21 Range/Units 05:54 06:57 06:57 WBC 8.94 (4.8-10.8) K/uL RBC 4.82 (4.2-5.4) M/uL Hgb 14.4 (12.0-16.0) g/dL Hct 42.6 (37-47) % MCV 88.4 (80-100) fL MCH 29.9 (25-34) pg MCHC 33.8 (32-36) g/dL RDW Std Deviation 43.1 (36.4-46.3) fL RDW Coeff of [place] 13.2 (11.5-14.5) % Plt Count 203 (130-400) K/uL MPV 12.2 H (7.4-10.4) fL Immature Gran % (Auto) 0.1 % Neut % (Auto) 66.0 % Lymph % (Auto) 25.7 % [place] % (Auto) 6.8 % Eos % (Auto) 1.2 % Baso % (Auto) 0.2 % Neut # (Auto) 5.89 (1.4-6.5) K/uL Lymph # (Auto) 2.30 (1.2-3.4) K/uL [place] # (Auto) 0.61 H (0.11-0.59) K/uL Eos # (Auto) 0.11 (0-0.5) K/uL Baso # (Auto) 0.02 (0-0.2) K/uL Immature Gran # (Auto) 0.01 (0.00-0.02) K/uL D-Dimer (0-500) ug/L FEU Sodium 138 (136-145) mmol/L Potassium 3.8 (3.5-5.1) mmol/L Chloride 106 (98-107) mmol/L Carbon Dioxide 25 (21-32) mmol/L Anion Gap 7.0 (3-11) BUN 16 (7-18) mg/dl Creatinine 1.12 (0.6-1.2) mg/dl Est Cr Clr Drug Dosing 65.6 ml/min Est GFR ( Amer) 64.5 ml/min Est GFR (Non-Af Amer) 55.6 ml/min BUN/Creatinine Ratio 14.5 (10-20) Glucose 128 H (70-99) mg/dl Calcium 9.5 (8.5-10.1) mg/dl Total Bilirubin 0.5 (0.2-1) mg/dl AST 18 (15-37) U/L ALT 32 (12-78) Alkaline Phosphatase 83 (45-117) U/L Troponin I < 0.015 (0-0.045) ng/ml Total Protein 7.6 (6.4-8.2) gm/dl Albumin 3.7 (3.4-5.0) gm/dl Globulin 3.9 (2.5-4.0) gm/dl Albumin/Globulin Ratio 0.9 (0.9-2) Lipase 168 (73-393) U/L Urine Color Dark Yellow Urine Appearance Clear (Clear) Urine pH 5.5 (4.5-7.5) Ur Specific [place] 1.021 (1.000-1.030) Urine Protein Trace H (Negative) Urine Glucose (UA) Negative (Negative) Urine Ketones Negative (Negative) Urine Blood Negative (Negative) Urine Nitrite Negative (Negative) Urine Bilirubin Negative (Negative) Urine Urobilinogen Negative (Negative) Ur Leukocyte Esterase 2+ H (Negative) Urine WBC (Auto) 10-30 H (0-5) /hpf Urine RBC (Auto) 0-4 (0-4) /hpf U Hyaline Cast (Auto) 1-5 (0-5) /lpf U Epithel Cells (Auto) >30 H (0-5) /lpf Urine Bacteria (Auto) 1+ H (Negative) Urine Yeast Budding w/ Hyphae A (None Prsent) SARS-CoV-2, RNA, NAAT (NEGATIVE) 09/23/21 09/23/21 09/23/21 Range/Units 06:57 06:57 10:35 WBC (4.8-10.8) K/uL RBC (4.2-5.4) M/uL Hgb (12.0-16.0) g/dL Hct (37-47) % MCV (80-100) fL MCH (25-34) pg MCHC (32-36) g/dL RDW Std Deviation (36.4-46.3) fL RDW Coeff of [place] (11.5-14.5) % Plt Count (130-400) K/uL MPV (7.4-10.4) fL Immature Gran % (Auto) % Neut % (Auto) % Lymph % (Auto) % [place] % (Auto) % Eos % (Auto) % Baso % (Auto) % Neut # (Auto) (1.4-6.5) K/uL Lymph # (Auto) (1.2-3.4) K/uL [place] # (Auto) (0.11-0.59) K/uL Eos # (Auto) (0-0.5) K/uL Baso # (Auto) (0-0.2) K/uL Immature Gran # (Auto) (0.00-0.02) K/uL D-Dimer 210 (0-500) ug/L FEU Sodium (136-145) mmol/L Potassium (3.5-5.1) mmol/L Chloride (98-107) mmol/L Carbon Dioxide (21-32) mmol/L Anion Gap (3-11) BUN (7-18) mg/dl Creatinine (0.6-1.2) mg/dl Est Cr Clr Drug Dosing ml/min Est GFR ( Amer) ml/min Est GFR (Non-Af Amer) ml/min BUN/Creatinine Ratio (10-20) Glucose (70-99) mg/dl Calcium (8.5-10.1) mg/dl Total Bilirubin (0.2-1) mg/dl AST (15-37) U/L ALT (12-78) Alkaline Phosphatase (45-117) U/L Troponin I Cancelled (0-0.045) ng/ml Total Protein (6.4-8.2) gm/dl Albumin (3.4-5.0) gm/dl Globulin (2.5-4.0) gm/dl Albumin/Globulin Ratio (0.9-2) Lipase (73-393) U/L Urine Color Urine Appearance (Clear) Urine pH (4.5-7.5) Ur Specific [place] (1.000-1.030) Urine Protein (Negative) Urine Glucose (UA) (Negative) Urine Ketones (Negative) Urine Blood (Negative) Urine Nitrite (Negative) Urine Bilirubin (Negative) Urine Urobilinogen (Negative) Ur Leukocyte Esterase (Negative) Urine WBC (Auto) (0-5) /hpf Urine RBC (Auto) (0-4) /hpf U Hyaline Cast (Auto) (0-5) /lpf U Epithel Cells (Auto) (0-5) /lpf Urine Bacteria (Auto) (Negative) Urine Yeast (None Prsent) SARS-CoV-2, RNA, NAAT NEGATIVE (NEGATIVE) Administered Medications Discontinued Medications Sodium Chloride (Nss 1000ml) 1,000 mls @ 999 mls/hr IV .Q1H1M ONE Stop: 09/23/21 07:48 Last Infusion: 09/23/21 09:10 Dose: 0 mls/hr Documented by: [id number] Admin: 09/23/21 07:08 Dose: 999 mls/hr Documented by: [id number] Morphine Sulfate (Morphine Sulfate 10 Mg/Ml Carp/Vial) 6 mg IV NOW STA Stop: 09/23/21 06:49 Last Admin: 09/23/21 07:08 Dose: 6 mg Documented by: [id number] Morphine Sulfate (Morphine Sulfate 10 Mg/Ml Carp/Vial) 6 mg IV NOW STA Stop: 09/23/21 09:01 Last Admin: 09/23/21 09:10 Dose: 6 mg Documented by: [id number] Ondansetron HCl (Ondansetron Inj 2 Mg/Ml 2 Ml Vial) 4 mg IV NOW STA Stop: 09/23/21 06:49 Last Admin: 09/23/21 07:08 Dose: 4 mg Documented by: [id number] Imaging Data Radiologist's Impression: Gallbladder Ultrasound 09/23/21 06:48 US gallbladder CLINICAL HISTORY: epigastric pain TECHNIQUE: Multiple real-time sonographic images of the right upper quadrant were obtained. Comparison: None available at the time of this dictation. FINDINGS: The liver is diffusely echogenic in appearance with poor ultrasound penetration, with normal contour, which is consistent with fatty infiltration. No focal mass lesions are seen. No intrahepatic ductal dilatation is seen. A mobile gallstone is seen. The gallbladder wall measures 0.1 cm in diameter. A sonographic Wade's sign was elicited by the shoe parts molder. The common duct rachel sures 0.6 cm in diameter at the level of the hepatic artery. The visualized portions of the pancreas appear normal. The right kidney shows normal echogenicity, cortical thickness and renal contour. The right kidney shows no evidence of hydronephrosis or mass. No ascites or free fluid is seen in Velasquez's pouch. IMPRESSION: Hepatic steatosis. Positive sonographic Wade's sign without pericholecystic fl uid or wall thickening. Findings are equivocal for cholecystitis. ACT 112: Negative or not required by law. Electronically signed by: Azar Gan M.D. 09/23/2021 8:55 AM Discharge Plan Visit Data Chief Complaint: Abdominal Pain Stated Complaint: ABD PAIN, LOWER CHEST PAIN ED Provider: Luiz Cabezas Discharge Problem: Intractable epigastric abdominal pain, Dysfunctional gallbladder Forms Stand Alone Forms: My [employer]! Prescriptions Prescriptions: No Action omeprazole 20 mg capsule,delayed release(DR/EC) 20 mg PO QAM Qty: 90 RF: 3 levothyroxine 88 mcg capsule 88 mcg PO QAM Qty: 90 RF: 3 sertraline 100 mg tablet 100 mg PO QAM Qty: 90 RF: 3 triamterene-hydrochlorothiazid 37.5-25 mg capsule 1 cap PO QAM Qty: 90 RF: 3 potassium chloride [Klor-Con M20] 20 mEq tablet,ER particles/crystals 20 meq PO QAM Qty: 90 RF: 3 calcium carbonate [Calcium 500] 500 mg calcium (1,250 mg) tablet,chewable 500 mg PO QPM RF: 0 Referrals Referrals: Herminio Barbour MD [Primary Care Provider] -
[2021-09-23 06:54] LABS: Appearance Urine Clear (Clear); Bacteria Urine Automated 1+ (Negative); Bilirubin Urine Negative (Negative); Blood Urine Negative (Negative); Color Urine Dark Yellow; Epithelial Cell Urine Auto >30 /lpf (0-5); Glucose Urine UA Negative (Negative); Ketones Urine Negative (Negative); Leukocyte Esterase Urine 2+ (Negative); Nitrite Urine Negative (Negative); Protein Urine Trace (Negative); Specific Gravity Urine 1.021 (1.000-1.030); Urobilinogen Urine Negative (Negative); pH Urine 5.5 (4.5-7.5)
[2021-09-23 07:07] LABS: Basophils # (auto) 0.02 K/uL (0-0.2); Basophils % (auto) 0.2 %; Eosinophils # (auto) 0.11 K/uL (0-0.5); Eosinophils % (auto) 1.2 %; Hematocrit (blood only) 42.6 % (37-47); Hemoglobin 14.4 g/dL (12.0-16.0); Immature Granulocytes # (auto) 0.01 K/uL (0.00-0.02); Immature Granulocytes % (auto) 0.1 %; Lymphocytes % (auto) 25.7 %; Mean Corpuscular Hemoglobin 29.9 pg (25-34); Mean Corpuscular Hgb Conc 33.8 g/dL (32-36); Mean Corpuscular Volume 88.4 fL (80-100); Mean Platelet Volume 12.2 fL (7.4-10.4); Monocytes # (auto) 0.61 K/uL (0.11-0.59); Monocytes % (auto) 6.8 %; Neutrophils # (auto) 5.89 K/uL (1.4-6.5); Platelet Count 203 K/uL (130-400); RDW Coefficient of Variation 13.2 % (11.5-14.5); RDW Standard Deviation 43.1 fL (36.4-46.3); Red Blood Count 4.82 M/uL (4.2-5.4); White Blood Count 8.94 K/uL (4.8-10.8)
[2021-09-23 07:16] LABS: RBC Urine Automated 0-4 /hpf (0-4)
[2021-09-23 07:28] LABS: Alanine Aminotransferase 32 (12-78); Albumin Level 3.7 gm/dl (3.4-5.0); Aspartate Aminotransferase 18 U/L (15-37); BUN Creatinine Ratio 14.5 (10-20); Blood Urea Nitrogen 16 mg/dl (7-18); Calcium 9.5 mg/dl (8.5-10.1); Carbon Dioxide 25 mmol/L (21-32); Chloride 106 mmol/L (98-107); Creatinine Clr Calc Pharmacy 65.6 ml/min; Est GFR (African American) 64.5 ml/min; Est GFR (Non-African American) 55.6 ml/min; Glucose 128 mg/dl (70-99); Lipase 168 U/L (73-393); Potassium 3.8 mmol/L (3.5-5.1); Sodium 138 mmol/L (136-145)
[2021-09-23 07:29] LABS: D Dimer 210 ug/L FEU (0-500)
[2021-09-23 07:33] LABS: Albumin Globulin Ratio 0.9 (0.9-2); Alkaline Phosphatase 83 U/L (45-117); Bilirubin,Total 0.5 mg/dl (0.2-1); Globulin 3.9 gm/dl (2.5-4.0); Total Protein 7.6 gm/dl (6.4-8.2); Troponin I < 0.015 ng/ml (0-0.045)
--- NOTE | 2021-09-23 08:56 | Ultrasound Report ---
US gallbladder CLINICAL HISTORY: epigastric pain TECHNIQUE: Multiple real-time sonographic images of the right upper quadrant were obtained. Comparison: None available at the time of this dictation. FINDINGS: The liver is diffusely echogenic in appearance with poor ultrasound penetration, with normal contour, which is consistent with fatty infiltration. No focal mass lesions are seen. No intrahepatic shilpa adrián dilatation is seen. A mobile gallstone is seen. The gallbladder wall measures 0.1 cm in diameter . A sonographic Wade's sign was elicited by the black powder glazing operator. The common duct measures 0.6 cm in d iameter at the level of the hepatic artery. The visualized portions of the pancreas appear normal. The right kidney shows normal echogenicity, cortical thickness and renal contour. The right kidney sh ows no evidence of hydronephrosis or mass. No ascites or free fluid is seen in Velasquez's pouch. IMPRESSION: Hepatic steatosis. Positive sonographic Wade's sign without pericholecystic fluid or wall thickenin g. Findings are equivocal for cholecystitis. ACT 112: Negative or not required by law. Electronically signed by: Azar Gan M.D. 09/23/2021 8:55 AM
[2021-09-23] MEDS ORDERED: ALUMINUM/MAGNESIUM SUSP 18 ML, LIDOCAINE VISCOUS 2% SOLN 6 ML, BARCODE IDENTIFIER 1 EA PO ONE (10:14)
--- NOTE | 2021-09-23 10:28 | History & Physical Report ---
Date of Service September 23, 2021 Assessment & Plan (1) Abdominal pain: Plan: She does have cholelithiasis, although no convincing evidence of cholecystitis at this time. Will admit for IV analgesics, antibiotics (UTI and ? developing cholecystitis) and further workup to include HIDA and trending labs. History of Present Illness Primary Care Provider: Herminio Barbour MD 56 y/o female with epigastric pain that began last evening, continued overnight and had N/V x2 this morning. Last meal was breakfast yesterday, eggs and potatoes. Does not have history of food intolerance, nausea or bloating. Has been treated for reflux for several years with PPI but this feels different. She did take an extra omeprazole this morning. She has had 6 mg morphine twice while in the ED and pain is returning again. No previous abdominal surgery. Her mother had cholecystectomy. Allergies Allergy/AdvReac Type Severity Reaction Status Date / Time Sulfa (Sulfonamide Allergy Unknown RASH Verified 03/13/21 15:55 Antibiotics) Home Medications Medication Instructions Recorded Confirmed Type calcium carbonate 500 mg calcium 500 mg PO QPM tab 04/25/19 09/23/21 History (1,250 mg) chewable tablet (Calcium 500) omeprazole 20 mg capsule,delayed 20 mg PO QAM #90 cap 01/07/21 09/23/21 Rx release levothyroxine 88 mcg capsule 88 mcg PO QAM #90 cap 02/04/21 09/23/21 Rx sertraline 100 mg tablet 100 mg PO QAM #90 tab 02/22/21 09/23/21 Rx triamterene 37.5 1 cap PO QAM #90 cap 04/05/21 09/23/21 Rx mg-hydrochlorothiazide 25 mg capsule potassium chloride 20 mEq 20 meq PO QAM #90 tab 08/09/21 09/23/21 Rx tablet,extended release(part/cryst) (Klor-Con M) Past Med/Surg History Medical History Carpal tunnel syndrome Costochondritis Hypokalemia Inflamed seborrheic keratosis LGSIL on Pap smear of cervix Lump of skin Psoriasis, guttate Surgical History History of esophagogastroduodenoscopy (EGD) S/P sinus surgery S/P tonsillectomy Family History Mother Congestive heart failure Breast cancer Myocardial infarction Father Diabetes Hypertension Hyperlipidemia Prostate cancer Denies family history of Ovarian cancer Colorectal cancer Social History Smoking Status: Never smoker Second Hand Exposure: No; Hx Alcohol Use: No Hx Substance Use: No Preferred Language: Azerbaijani Communication Ability: Effective Visual Impairment: No Limitations Hearing Ability: Normal Beliefs That Will Affect Care: None marital status: Current Living Situation: Spouse current occupational status: employed current occupation: Way master Feels Safe at Home: Yes Childhood Exposure to Second-Hand Smoke: No Dental Care, Regularly: Yes Physical Activity Frequency: Does not Exercise Seatbelt Use: always Sunscreen Use: Yes Review of Systems Constitutional: no fever, no chills, no malaise and no anorexia Respiratory: no cough and no dyspnea Cardiovascular: no chest pain, no chest pain with activity and no radiating jaw, neck or arm pain Gastrointestinal: + abdominal pain, + heartburn, + nausea and + vomiting; no bloating Genitourinary: no dysuria and no urinary frequency Physical Exam Constitutional: WD/WN, vitals as above Respiratory: normal respiratory effort, lungs clear to auscultation Cardiovascular: RRR, no murmur, no edema Gastrointestinal (Abdomen): Inspection/Auscultation: abdomen normal to inspection; abdomen not distended Percussion/Palpation: + abdomen tender (epigastric) and abdomen soft; no guarding Skin: no rashes, warm and dry Results & Data Results & Data ([facility]) Vital Signs (Past 12 Hours) Vital Signs Temp Pulse Pulse Resp BP BP Pulse Ox 09/23/21 07:30 69 16 138/79 95 09/23/21 06:38 68 145/82 H 94 09/23/21 04:59 36.3 C L 67 18 154/75 H 99 Code Status & VTE Plan VTE Prophylaxis Plan VTE Prophylaxis will be ordered: Yes Supervising Physician Co-Signing Physician Notes I personally saw the patient with Hector Ervin PA-C and agree with the assessment and plan. 56-year-old female with biliary colic versus acute cholecystitis The patient has gallstones and equivocal findings of acute cholecystitis on her ultrasound with continued pain We will admit the patient for pain control and order a HIDA scan to rule out acute cholecystitis Her UA results were reviewed, we will start her on IV antibiotic, final culture is pending Continue to keep n.p.o. with IV fluids PG Care Time/CCT Total # of Minutes Spent Total Time Spent with Patient: Total time spent is greater than 50% in coordination of care (as documented) at patient's floor/unit and/or counseling patient: Coding Level of Care Code 27469 Initial Inpt Care Lvl 2 Diagnoses Abdominal pain R10.9
[2021-09-23] MEDS ORDERED: HYDROmorphone INJ 0.5 MG/0.5 ML SYR IV PRN ×2 (14:34)
[2021-09-23] MEDS ORDERED: MoRPHine SULFATE 2 MG/ML CARP ONE (14:34)
[2021-09-23] MEDS ORDERED: ONDANSETRON INJ 2 MG/ML 2 ML VIAL IV PRN (14:34)
--- NOTE | 2021-09-23 15:39 | Nuclear Medicine Report ---
NUCLEAR MEDICINE HEPATOBILIARY SCAN HISTORY: epigastric pain COMPARISON: Abdominal ultrasound 09/23/2021. TECHNIQUE: Immediately following the intravenous administration of 5.6 mCi Tc-99m Choletec, dynamic a nterior abdominal imaging was performed. FINDINGS: Uniform hepatic tracer accumulation is shown. Prompt intrahepatic biliary excretion is seen. The comm on bile duct and small bowel are visualized at 12 minutes. The gallbladder was not identified during the initial 60 minutes of imaging. Therefore, 2 mg of intravenous morphine were administered and an a dditional 30 minutes of dynamic abdominal imaging was obtained. The gallbladder was not identified du ring the additional 30 minutes of imaging. IMPRESSION: Above findings consistent with cystic duct obstruction/acute cholecystitis. This report was called/fa xed to the referring physician following dictation. ACT 112: Negative or not required by law. Electronically signed by: Wiley Chaudhary M.D. 09/23/2021 3:38 PM
[2021-09-23] MEDS: LACTATED RINGER'S 1,000 ML IV SCH ×2 (15:51→23:16)
[2021-09-23] MEDS: AMPICILLIN/SULBACTAM SOD 3,000 MG in 0.9 % SODIUM CHLORIDE 100 ML IV SCH ×2 (17:05→20:11)
--- NOTE | 2021-09-23 18:24 | Anesthesiology Consultation ---
Date of Service September 23, 2021 Assessment & Plan (1) Encounter for pre-operative examination: Chart Review Chart Review: entry analyst initiated History Surgery Operation Date: 09/24/21 07:55 Proposed Procedures p Laparoscopic Cholecystectomy, Poaible Cholangiogram - Rojelio Becker DO Height/Weight Height: 5 ft 4 in Weight: 98.8 kg Allergies Allergy/AdvReac Type Severity Reaction Status Date / Time Sulfa (Sulfonamide Allergy Unknown RASH Verified 03/13/21 15:55 Antibiotics) Medications Home Medications Medication Instructions Recorded Confirmed Last Taken calcium carbonate 500 mg calcium 500 mg PO QPM tab 04/25/19 09/23/21 09/07/20 (1,250 mg) chewable tablet (Calcium 500) omeprazole 20 mg capsule,delayed 20 mg PO QAM #90 cap 01/07/21 09/23/21 Unknown release levothyroxine 88 mcg capsule 88 mcg PO QAM #90 cap 02/04/21 09/23/21 Unknown sertraline 100 mg tablet 100 mg PO QAM #90 tab 02/22/21 09/23/21 Unknown triamterene 37.5 1 cap PO QAM #90 cap 04/05/21 09/23/21 Unknown mg-hydrochlorothiazide 25 mg capsule potassium chloride 20 mEq 20 meq PO QAM #90 tab 08/09/21 09/23/21 Unknown tablet,extended release(part/cryst) (Klor-Con M) Active Medications Generic Name Dose Route Start Last Admin Trade Name Freq PRN Reason Stop Dose Admin Hydromorphone HCl 1 mg 09/23/21 14:34 09/23/21 15:52 Hydromorphone Inj 0.5 Mg/0.5 Ml Syr IV 10/07/21 14:33 1 mg Q2H PRN Administration Pain (6,7,8,9,10) Lactated Ringer's 1,000 mls @ 125 mls/hr 09/23/21 14:45 09/23/21 15:51 Lr IV 10/23/21 14:44 125 mls/hr .Q8H MARCIN Administration Ampicillin Sodium/Sulbactam 108 mls @ 200 mls/hr 09/23/21 15:00 09/23/21 17:50 Sodium 3,000 mg/ Sodium IV 10/03/21 14:59 Infused Chloride Q6H MARCIN Infusion Protocol Past Medical History Medical History Carpal tunnel syndrome Costochondritis Hypokalemia Inflamed seborrheic keratosis LGSIL on Pap smear of cervix Lump of skin Psoriasis, guttate Past Family History Family History Mother Congestive heart failure Breast cancer Myocardial infarction Father Diabetes Hypertension Hyperlipidemia Prostate cancer Denies family history of Ovarian cancer Colorectal cancer Past Surgical History Surgical History History of esophagogastroduodenoscopy (EGD) S/P sinus surgery S/P tonsillectomy Social History Smoking Status: Never smoker Hx Alcohol Use: No Hx Substance Use: No Physical Exam Vital Signs Last Vital Signs Temp 99.1 F 09/23/21 16:16 Pulse 78 09/23/21 16:16 Resp 16 09/23/21 16:16 BP 107/63 09/23/21 16:16 Pulse Ox 92 09/23/21 16:16 Testing Laboratory Results 09/23/21 06:57 09/23/21 06:57 Urine Color Dark Yellow 09/23/21 05:54 Urine Appearance Clear (Clear) 09/23/21 05:54 Urine pH 5.5 (4.5-7.5) 09/23/21 05:54 Ur Specific [place] 1.021 (1.000-1.030) 09/23/21 05:54 Urine Protein Trace (Negative) H 09/23/21 05:54 Urine Glucose (UA) Negative (Negative) 09/23/21 05:54 Urine Ketones Negative (Negative) 09/23/21 05:54 Urine Nitrite Negative (Negative) 09/23/21 05:54 Ur Leukocyte Esterase 2+ (Negative) H 09/23/21 05:54 Urine WBC (Auto) 10-30 /hpf (0-5) H 09/23/21 05:54 Urine RBC (Auto) 0-4 /hpf (0-4) 09/23/21 05:54 U Hyaline Cast (Auto) 1-5 /lpf (0-5) 09/23/21 05:54 U Epithel Cells (Auto) >30 /lpf (0-5) H 09/23/21 05:54 Urine Bacteria (Auto) 1+ (Negative) H 09/23/21 05:54 Laboratory Tests 09/23/21 10:35 SARS-CoV-2, RNA, NAAT NEGATIVE Electrocardiogram Date: 09/23/21 Unusual P axis, possible ectopic atrial rhythm, rate 65 bpm Nonspecific T wave abnormality Abnormal ECG When compared with ECG of 08-SEP-2020 13:27, Ectopic atrial rhythm has replaced Sinus rhythm
[2021-09-23] MEDS ORDERED: ACETAMINOPHEN 325 MG TAB PO PRN (19:51)
[2021-09-24] MEDS: AMPICILLIN/SULBACTAM SOD 3,000 MG in 0.9 % SODIUM CHLORIDE 100 ML IV SCH ×4 (02:15→20:17)
[2021-09-24] MEDS: LEVOTHYROXINE SODIUM 88 MCG TABLET PO SCH (06:13)
[2021-09-24] MEDS: LACTATED RINGER'S 1,000 ML IV SCH ×2 (06:13→16:40)
--- NOTE | 2021-09-24 07:38 | Surgery Progress Note ---
Date of Service September 24, 2021 Assessment & Plan (1) Acute cholecystitis: Plan: 56-year-old female with acute cholecystitis HIDA images and results reviewed, consistent with acute cholecystitis Keep n.p.o. IV fluids, IV antibiotics We will plan on laparoscopic cholecystectomy, possible open, possible intraoperative cholangiogram today Consent obtained, risks discussed including bleeding, infection, bile leak, ductal injury Admission and Anticipated Discharge Date Admission Date: September 23, 2021 Subjective Patient seen and examined. Pain improved. Afebrile. No acute events overnight. Review of Systems Constitutional: no fever and no chills Physical Exam Constitutional: WD/WN, vitals as above Respiratory: normal respiratory effort, lungs clear to auscultation Cardiovascular: RRR, no murmur, no edema Gastrointestinal (Abdomen): Inspection/Auscultation: abdomen normal to inspection; abdomen not distended Percussion/Palpation: + abdomen tender (RUQ) and abdomen soft; no guarding and abdomen not rigid Results & Data ([facility]) Vital Signs (Past 12 Hours) Vital Signs Temp Pulse Resp BP Pulse Ox 09/23/21 23:43 36.9 C 69 18 107/71 90 PG Care Time/CCT Total # of Minutes Spent Total Time Spent with Patient: Total time spent is greater than 50% in coordination of care (as documented) at patient's floor/unit and/or counseling patient: Coding Level of Care Code 17057 Subseq Hosp Care Lvl 1 Diagnoses Acute cholecystitis K81.0
[2021-09-24] MEDS: PANTOprazole 40 MG TAB PO SCH (08:14)
[2021-09-24] MEDS ORDERED: DEXAMETHASONE SOD INJ 4 MG/ML VIAL ONE ×2 (08:49→11:34)
[2021-09-24] MEDS ORDERED: PROPOFOL IV EMULSION 10 MG/ML 20 ML VIAL IV ONE ×2 (08:49→11:34)
[2021-09-24] MEDS ORDERED: ONDANSETRON INJ 2 MG/ML 2 ML VIAL ONE ×2 (08:49→11:34)
[2021-09-24] MEDS ORDERED: ROCURONIUM BROMIDE 10 MG/ML 5 ML VIAL IV ONE ×2 (08:49→11:34)
[2021-09-24] MEDS ORDERED: fentaNYL citrate 100 MCG/2 ML VIAL ONE ×2 (08:50→11:35)
[2021-09-24] MEDS ORDERED: SUGAMMADEX SODIUM 200 MG/2 ML VIAL IV ONE (08:52)
[2021-09-24] MEDS ORDERED: TRIAMTERENE/HCTZ 37.5/25MG CAP PO SCH (09:00)
[2021-09-24] MEDS ORDERED: fentaNYL citrate 100 MCG/2 ML VIAL IV PRN (11:11)
[2021-09-24] MEDS ORDERED: ONDANSETRON INJ 2 MG/ML 2 ML VIAL IV PRN (11:11)
[2021-09-24] MEDS ORDERED: LABETALOL HCL IV 5 MG/ML 20ML IV PRN (11:11)
[2021-09-24] MEDS ORDERED: PHENYLEPHRINE 100MCG/ML 5ML SYR IV PRN (11:11)
[2021-09-24] MEDS ORDERED: ATROPINE SULFATE 0.1 MG/ML 10ML SYR IV PRN (11:11)
[2021-09-24] MEDS ORDERED: ePHEDrine sulfate 50 MG/ML AMP IV PRN (11:11)
[2021-09-24] MEDS ORDERED: HYDROmorphone INJ 1 MG/ML SYRINGE IV PRN (11:11)
[2021-09-24] MEDS ORDERED: ACETAMINOPHEN 1000 MG/100 ML IV IV ONE (11:33)
[2021-09-24] MEDS ORDERED: LIDOCAINE 2% 2 ML VIAL/AMP(20MG/ML) INFIL ONE (11:34)
[2021-09-24] MEDS ORDERED: MIDAZOLAM HCL 1 MG/ML 2ML VIAL ONE (11:36)
[2021-09-24] MEDS ORDERED: SCOPOLAMINE 1 MG TDSY TD ONE (11:46)
--- NOTE | 2021-09-24 15:07 | Post Operative Brief Note ---
PG Immediate Post Op with CF Date of Surgery September 24, 2021 Pre & Post Diagnosis Operation Date: 09/24/21 07:55 Pre-Op Diagnosis: Acute Cholecystitis Post-Op Diagnosis: Acute Cholecystitis I identified the patient and participated in the time-out.: Yes Procedure Operation Date: 09/24/21 07:55 Actual Procedures p Laparoscopic Cholecystectomy - Rojelio Becker DO Surgeon Rojelio Becker DO Money Market Dealer Hector Ervin PA-C Estimated Blood Loss 25 Findings See Below Acutely inflamed, dilated, edematous gallbladder Specimens Specimen Description: A) Gallbladder Anesthesia Type General Complications none Disposition Disposition: Recovery Room
--- NOTE | 2021-09-24 15:14 | Operative Report ---
PG Post Operative Report Pre & Post Diagnosis Operation Date: 09/24/21 07:55 Pre-Op Diagnosis: Acute Cholecystitis Post-Op Diagnosis: Acute Cholecystitis I identified the patient and participated in the time-out.: Yes Procedure Operation Date: 09/24/21 07:55 Actual Procedures p Laparoscopic Cholecystectomy - Rojelio Becker DO Surgeon Rojelio Becker DO Licensing Specialist Hector Ervin PA-C Estimated Blood Loss 25 Findings See Below Acutely inflamed, distended, edematous gallbladder Fluids see anesthesia record Specimens Gallbladder to pathology Drains None Anesthesia Type General Complications none Disposition Disposition: Recovery Room Indications 56 yo female with acute cholecystitis Description of Procedure The patient was brought to the operating room and placed in the supine position with both arms extended. At this time she underwent general endotracheal anesthesia without any problems. She was given appropriate pre-operative antibiotics. Her abdomen prepped and draped in the usual sterile fashion. A timeout was called, the procedure was verified as Laparoscopic cholecystectomy, possible open, possible intra-operative cholangiogram. Surgical, nursing and anesthesia teams agreed and the procedure was begun. After injection of 0.25% Marcaine with epinephrine, a supraumbilical vertical incision was made and carried down to the fascia using S-retractors. The abdominal wall was then elevated with towel clamps and abdomen entered using the Veress needle confirming position using the saline drop test. Pneumoperitoneum was established. 5mm trocar was placed. Laparoscope was introduced. No injury from entry into the abdomen was visualized after inspection of the abdomen. Three further ports were placed under direct visualization. One 11mm in the subxiphoid region and two 5mm in the RUQ. At this time the abdomen was insp ected and the gallbladder identified. The gallbladder was inflamed, distended and very edematous. The gallbladder fundus was grasped and retracted cephalad. The gallbladder infundibulum was then grasped and retracted laterally. The cystic duct and cystic artery were then identified and skeletonized. The critical view of safety was obtained. They were both then clipped twice proximally and once distally and then divided using scissors. The gallbladder was then taken off of the liver bed using electrocautery and placed in an endocatch bag and removed from the subxiphoid port. The liver bed was then inspected and no bile leak or bleeding was evident. The subxiphoid port was then closed using 0-Vicryl using the suture passer. The trocars were then removed under direct visualization and no bleeding was present. Abdomen was desufflated. The skin was then closed using 4-0 Monocryl in a subcuticular fashion. Sterile dressings were applied. Needle and sponge counts were correct x 2. At this time the patient was awoken from anesthesia and extubated having remained stable throughout the entire case. The patient was then transported to PACU in stable condition. The physician housing assistant was present and scrubbed for the entire case. He was essential in positioning, prepping and draping the patient, retraction and exposure, driving the laparoscope, closure of the incisions and placement of the dressings. I attest to the content of the Intraoperative Record and any orders documented therein. Any exceptions are noted below.
--- NOTE | 2021-09-24 15:48 | Electrocardiogram Report ---
Test Reason : Blood Pressure : / mmHG Vent. Rate : 065 BPM Atrial Rate : 065 BPM P-R Int : 158 ms QRS Dur : 098 ms QT Int : 422 ms P-R-T Axes : 252 001 -06 degrees QTc Int : 438 ms Unusual P axis, possible ectopic atrial rhythm Nonspecific T wave abnormality Abnormal ECG When compared with ECG of 08-SEP-2020 13:27, Ectopic atrial rhythm has replaced Sinus rhythm Confirmed by Vick Ceja ([id number]) on 09/24/2021 3:47:58 PM Referred By: REFERRED SELF Confirmed By:Vick Ceja
--- NOTE | 2021-09-24 15:53 | Anesthesiology Progress Note ---
Date of Service September 24, 2021 Anesthesia Post Procedure Vital Signs Vital Signs: Temp Pulse Pulse Pulse Resp BP Pulse Ox 09/24/21 15:30 72 18 111/59 L 96 09/24/21 15:20 77 18 127/65 97 09/24/21 15:13 37.1 C 83 18 140/65 95 09/24/21 10:26 37.3 C 74 18 129/72 93 09/24/21 07:45 37 C 75 16 130/80 93 09/23/21 23:43 36.9 C 69 18 107/71 90 09/23/21 16:16 37.3 C 78 16 107/63 92 Pain Intensity Abdomen: Pain Intensity: 2 Transfer of Care Handoff Completed per policy Notes Mental Status: alert / awake / arousable Patient Amnestic to Procedure: Yes Nausea / Vomiting: adequately controlled Pain: adequately controlled Airway Patency, RR, SpO2: stable & adequate BP & HR: stable & adequate Hydration State: stable & adequate Anesthetic Complications: no major complications apparent and Pt Satisfied with anesthetic care Notes: The patient was noted to flip in and out of P wave inversion. Her EKG does not show any other abnormalities. The patient's vital signs have remained stable throughout the perioperative period. The patient is awake and comfortable. The patient was discussed with Dr. Arriaga who agrees that further workup is unnecessary at this time. The patient will have continuous pulse oximetry overnight due to her sleep apnea.
[2021-09-24] MEDS: SERTRALINE HCL 100 MG TABLET PO SCH (15:54)
[2021-09-24] MEDS: POTASSIUM CHLORIDE CRTAB 20 MEQ TABCR PO SCH (15:54)
[2021-09-24] MEDS ORDERED: oxyCODONE HCL IR 5 MG TAB (IMMEDIATE RELEASE) PO PRN (16:13)
[2021-09-24] MEDS: oxyCODONE HCL IR 5 MG TAB (IMMEDIATE RELEASE) PO PRN (22:10)
[2021-09-25] MEDS: AMPICILLIN/SULBACTAM SOD 3,000 MG in 0.9 % SODIUM CHLORIDE 100 ML IV SCH ×2 (02:25→08:16)
[2021-09-25] MEDS: oxyCODONE HCL IR 5 MG TAB (IMMEDIATE RELEASE) PO PRN (02:31)
[2021-09-25] MEDS: LEVOTHYROXINE SODIUM 88 MCG TABLET PO SCH (06:09)
--- NOTE | 2021-09-25 07:59 | Surgery Progress Note ---
Date of Service September 25, 2021 Assessment & Plan (1) Acute cholecystitis: Plan: POD 1 lap gabriel advance diet home today Admission and Anticipated Discharge Date Admission Date: September 23, 2021 Subjective minimal pain, no nausea, clears for dinner Physical Exam Gastrointestinal (Abdomen): Inspection/Auscultation: + abdominal surgical incision (dressings intact); abdomen not distended Percussion/Palpation: abdomen soft Results & Data ([facility]) Vital Signs (Past 12 Hours) Vital Signs Temp Pulse Pulse Resp BP Pulse Ox 09/25/21 07:00 36.7 C 71 18 109/71 99 09/25/21 04:30 36.7 C 68 16 106/66 98 09/24/21 23:12 36.8 C 67 16 105/61 96 PG Care Time/CCT Total # of Minutes Spent Total Time Spent with Patient: Total time spent is greater than 50% in coordination of care (as documented) at patient's floor/unit and/or counseling patient: Coding Level of Care Code None Diagnoses Acute cholecystitis K81.0
--- NOTE | 2021-09-25 08:04 | Discharge Summary ---
Date of Service September 25, 2021 Admission HPI Per Admitting Provider 56 y/o female with epigastric pain that began last evening, continued overnight and had N/V x2 this morning. Last meal was breakfast yesterday, eggs and potatoes. Does not have history of food intolerance, nausea or bloating. Has been treated for reflux for several years with PPI but this feels different. She did take an extra omeprazole this morning. She has had 6 mg morphine twice while in the ED and pain is returning again. No previous abdominal surgery. Her mother had cholecystectomy. Principal Diagnosis Acute cholecystitis Discharge Exam Constitutional WD/WN, vitals as above Gastrointestinal (Abdomen) Inspection/Auscultation: + abdominal surgical incision (dry); abdomen not distended Percussion/Palpation: abdomen soft Discharge Data Allergies Allergy/AdvReac Type Severity Reaction Status Date / Time Sulfa (Sulfonamide Allergy Unknown RASH Verified 03/13/21 15:55 Antibiotics) Consultations 09/23/21 10:01 ED Decision to Admit Stat 09/24/21 15:08 Consult Hospitalist Routine Procedures Performed Operation Date: 09/24/21 07:55 Actual Procedures p Laparoscopic Cholecystectomy - Rojelio Becker DO Ordered Studies 09/23/21 06:48 US gallbladder Stat Hospital Course (1) Acute cholecystitis: 56 y/o presented to the ER with epigastric pain. Labs were normal, ultrasound showed cholelithiasis but no changes for acute cholecystitis. Her pain persisted, she was admitted to the surgical service. HIDA was obtained and there was nonvisualization of the gallbladder. She was taken to the operating room in the next day for laparoscopic cholecystectomy. On POD 1 she was able to advance diet and was stable for discharge home. Total Time Total Time Spent Total Time Spent (In Minutes): 15 Discharge Plan Discharge Items Patient Disposition: Home - Self-Care Reason For Visit: ABD PAIN Discharge Diagnosis: laparoscopic cholecystectomy Activity: Per Instructions section Lifting: No more than 10 pounds Bathing Comment: may shower over bandage. no soaking in tubs/pools Exercise/Sports: Wait until after follow-up appointment Driving/Machine Use: no driving while taking narcotics for pain Non-emergency contact: Surgeon Call non-emergency contact if: you have any medication questions, your symptoms worsen, your pain is not controlled, your pain is worsening, your pain is con cerning for you, you have a fever, your temperature is above 101.5, your wound has increased redness, your wound has increased drainage and your wound pain has increased Follow-up/Referrals: Herminio Barbour MD [Primary Care Provider] - Rojelio Becker DO [Physician] - 10/08/21 10:15 am (Please call to schedule follow up in clinic within 2 weeks) Diet: Regular Addtl Attending Provider Instructions: You may purchase Tylenol and/or Ibuprofen over the counter if needed for additional pain control You may remove your outer surgical dressings on 09/26/21. You will have small white bandages on underneath called steri-strips. You may shower with these on, they will tend to fall off on their own within 7-10 days. Pending Studies at Discharge: Yes Studies:: surgical pathology Stand-Alone Forms: My [facility] [place], Work/School Release, Smoking Cessation Medications and DC Order Prescriptions: New oxycodone 5 mg tablet 5 - 10 mg PO Q4H Qty: 15 RF: 0 Continued omeprazole 20 mg capsule,delayed release(DR/EC) 20 mg PO QAM Qty: 90 RF: 3 levothyroxine 88 mcg capsule 88 mcg PO QAM Qty: 90 RF: 3 sertraline 100 mg tablet 100 mg PO QAM Qty: 90 RF: 3 triamterene-hydrochlorothiazid 37.5-25 mg capsule 1 cap PO QAM Qty: 90 RF: 3 potassium chloride [Klor-Con M20] 20 mEq tablet,ER particles/crystals 20 meq PO QAM Qty: 90 RF: 3 calcium carbonate [Calcium 500] 500 mg calcium (1,250 mg) tablet,chewable 500 mg PO QPM RF: 0 Discharge Orders: Discharge Order (Routine); Ordered 09/25/21 Ordered By: Hector Ervin Jr Admission Data Admit Date/Time: 09/23/21 10:14 Attending Provider: Rojelio Becker Admit Provider: Rojelio Becker Primary Care Provider: Herminio Barbour Other Providers: Rojelio Becker ; Paloma Barker ; Calin Villalobos ; Bruce Oliver ; Cheo Malik ; Eber Yanez ; Azar Grider ; Elliot Kong ; Beatrice Pereira ; Ledy Donald ; Chad Hull ; Sue Mcmanus ; Cherelle Jensen ; Destin Grant ; Jay Barlow ; Aris Ardon ; Paloma Espinosa ; Daniele Souza ; Ameena Maya ; Vinicio Nick Jonathan M. ; Manolo Flores ; Aziza Torre ; Lucie Kellogg ; Terrell Noguera ; Sue Rutherford ; Demario Mcleod ; Cyril High ; Marco A Palacios Other Interventions: Discharge Summary Assessment (RN) Last Done: 09/25/21 11:21 Coding Level of Care Code D/C DAY MANAGEMENT <30 MINS Diagnoses Acute cholecystitis K81.0
[2021-09-25] MEDS: POTASSIUM CHLORIDE CRTAB 20 MEQ TABCR PO SCH (08:16)
[2021-09-25] MEDS: SERTRALINE HCL 100 MG TABLET PO SCH (08:16)
[2021-09-25] MEDS: PANTOprazole 40 MG TAB PO SCH (08:16)
--- NOTE | 2021-09-25 16:03 | Communication Note ---
Date of Service: September 25, 2021 Consult was placed to the hospitalists for medical management; however, patient was discharged by primary service (General Surgery, Hector Ervin PA-C) prior to patient being seen by medicine.
== END 2021-09-25 13:13 | disposition home or self-care (01) ==
LOC: EDINP 04:46 → ED 04:46 → 3N 14:34